=== PATIENT | female | born 1945 | race Caucasian/White ===

== ENCOUNTER 2020-11-13 15:02 | Emergency (ER) | payer OTHER ==
--- OUTSIDE RECORDS SUMMARY | 2020-11-13 15:05 | XMS REPORT | Continuity of Care Document ---
:1945 Author Organization [facility] t Address [address] [place] [address] Care Team Providers Name Role Phone Asked, Pcp Primary Care Physician Unavailable Payers Payer Name Policy Type Policy Number Effective Date Expiration Date S ource Problems Condition Condition Condition Status Onset Resolution Last Treating Co mments Source Name Details Category Date Date Treatment Clinician Date Endometria Endometria Disease Active 2015-08 Overview : [place] l cancer l cancer 1-16 [facility] 00:00: g of this st 00 note might be different from the original. Stage IA, Grade 1 Allergies, Adverse Reactions, Alerts Allergy Allergy Status Severity Reaction(s) Onset Inactive Treating Comm ents Source Name Type Date Date Clinician michelle ALVAREZ Active U 2016-08 [facility] 2-20 [facility] 00:00: e 00 [facility] Social History Social Habit Start Date Stop Date Quantity Comments Source Sex Assigned At [birth year] [facility] ethodist 00:00:00 00:00:00 Medications Ordered Filled Start Stop Current Ordering Indication Dosage Frequency Signature Comments Components Source Medication Medication Date Date Medication? Clinician (SIG) Name Name lisinopril 2015-08 Yes TK 1 T PO [place] (PRINIVIL,Z 1-10 QD Methodi ESTRIL) 5 00:00: st MG tablet 00 allopurinol 2015-08 Yes TK 1 T PO [place] (ZYLOPRIM) 0-25 QD Methodi 300 MG 00:00: st tablet 00 TOVIAZ 8 mg 2016-1 Yes TK 1 T PO [place] tablet 0-25 QD Method[facility] extended 00:00: st release 24 00 hr meloxicam 2016- Yes TK 1 T PO Zeenat ston (MOBIC) 7.5 0-25 BID PRN Metho di MG tablet 00:00: st 00 ergocalcife 2016-0 Yes TK 1 C PO [place] rol 9-15 1 TIME A [facility] (ERGOCALCIF 00:00: WEEK st JUSTIN) 00 50,000 unit capsule Procedures This patient has no known procedures. Plan of Care Planned Activity Planned Date Details Comments Source Future Scheduled 2020-03-25 INFLUENZA VACCINE [place] [facility] 00:00:00 [code = INFLUENZA VACCINE] Future Scheduled 2018-07-29 BREAST CANCER [facility]odist Test 00:00:00 SCREENING [code = BREAST CANCER SCREENING] Future Scheduled 2011 65+ PNEUMOCOCCAL [place] [facility] 00:00:00 VACCINE (1 of 1 - PPSV23) [code = 65+ PNEUMOCOCCAL VACCINE (1 of 1 - PPSV23)] Future Scheduled 1996 COLONOSCOPY SCREENING [facility] 00:00:00 [code = COLONOSCOPY SCREENING] Future Scheduled 1996 SHINGLES VACCINES (#1) [place] [facility] 00:00:00 [code = SHINGLES VACCINES (#1)] Future Scheduled 1962 COVID-19 VACCINE (1 of [place] [facility] 00:00:00 2) [code = COVID-19 VACCINE (1 of 2)] Results Test Description Test Time Test Comments Results Result Sour e Comments - XR CHEST 1 V 2020-08-21 08:43:00 [facility])Name: KONRAD MORFIN : 1945 Sex: F FAX: Beny Skinner [phone] [place]: St: ADM Name: KONRAD MORFIN [facility] : 1945 Age/S: 75/F [address] [facility] Unit #: [id number] Loc: V[facility] [place] [address] Phys: Beny Mcclendon MD Acct: [id number] Dis Date: Status: ADM IN PHONE #: [phone] Exam Date: 08/21/2020 0832 FAX #: [phone] Reason: F/U ON COVID 19 INFECTION EXAMS: CPT CODE: [id number] XR CHEST 1 V [id number] REASON FOR EXAM: F/U ON COVID 19 INFECTION Exam Order Date: 08/21/2020 6:00 AM Ordering M.D.: Beny Cohen MD PROCEDURE: - XR CHEST 1 V COMPARISON: 08/19/2020 FINDINGS: Lines/Tubes: Left chest wall AICD in appropriate position. The lungs are clear. There is no pleural effusion or pneumothorax. Pulmonary vascularity is within normal limits. Cardiomediastinal silhouette and mediastinal contours are unchanged when accounting for differences in technique. Musculoskeletal structures and visualized portions of the upper abdomen are also unchanged. IMPRESSION: No acute cardiopulmonary process. Location: [facility] at 0843 Reported and signed by: Niko Mcpherson M.D. CC: Beny Mcclendon Technologist: Marisol Bledsoe) Trnscrd Date/Time/By: 08/21/2020 (0843) : By: [email or web address] Orig Print D/T: S: 08/21/2020 (5636) PAGE 1 Signed Report TROPONIN-I 2020-08-19 22:34:00 Test Item Value Reference Range Interpretation Comme nts TROPONIN-I (test code = TROPI) <0.015 ng/mL 0-0.045 N COMMENTS TO CERTIFIED ATHLETIC TRAINER: COLLECT 3 HOURS AFTER PREVIOUS [id number] 19:06:00 Test Item Value Reference Range Interpretation Comments TROPONIN-I (test code = TROPI) <0.015 ng/mL 0-0.045 N COMMENTS TO CERTIFIED ATHLETIC TRAINER: COLLECT 3 HOURS AFTER PREVIOUS SAMPLEURINALYSIS [id number] 18:49:00 Test Item Value Reference Range Interpretation Comments UA COLOR (test code = COLU) Light-Yellow YELLOW UA APPEARANCE (test code = CLEAR CLEAR APPU) UA GLUCOSE DIPSTICK (test NEGATIVE mg/dL NEGATIVE code = DGLUU) UA BILIRUBIN DIPSTICK (test NEGATIVE mg/dL NEGATIVE code = BILU) UA KETONE DIPSTICK (test code NEGATIVE mg/dL NEGATIVE = KETU) UA SPECIFIC GRAVITY (test 1.010 1.001-1.035 code = SGU) UA BLOOD DIPSTICK (test code Negative mg/dL NEGATIVE = MIKI) UA PH DIPSTICK (test code = 5.5 5.0-8.0 FOX) UA PROTEIN DIPSTICK (test NEGATIVE mg/dL NEGATIVE code = PROU) UA UROBILINIOGEN DIPSTICK Normal mg/dL NEGATIVE (test code = URO) UA NITRITE DIPSTICK (test NEGATIVE NEGATIVE code = FABIO) UA LEUKOCYTE ESTERASE W NEGATIVE Sandeep/uL NEGATIVE REFLEX (test code = LEUUR) UA WBC (test code = WBCU) 0-5 per HPF 0-5 UA RBC (test code = RBCU) 0-2 #/HPF 0-5 UA EPITHELIAL CELLS (test FEW per HPF FEW code = EPIU) UA BACTERIA (test code = FEW #/HPF NONE A BACU) UA MUCUS (test code = MUCU) FEW #/LPF FEW Urine Source? Clean CatchURINALYSIS [id number] 18:45:00 Test Item Value Reference Range Interpretation Comments UA COLOR (test code = COLU) Light-Yellow YELLOW UA APPEARANCE (test code = CLEAR CLEAR APPU) UA GLUCOSE DIPSTICK (test NEGATIVE mg/dL NEGATIVE code = DGLUU) UA BILIRUBIN DIPSTICK (test NEGATIVE mg/dL NEGATIVE code = BILU) UA KETONE DIPSTICK (test code NEGATIVE mg/dL NEGATIVE = KETU) UA SPECIFIC GRAVITY (test 1.010 1.001-1.035 code = SGU) UA BLOOD DIPSTICK (test code Negative mg/dL NEGATIVE = MIKI) UA PH DIPSTICK (test code = 5.5 5.0-8.0 FOX) UA PROTEIN DIPSTICK (test NEGATIVE mg/dL NEGATIVE code = PROU) UA UROBILINIOGEN DIPSTICK Normal mg/dL NEGATIVE (test code = URO) UA NITRITE DIPSTICK (test NEGATIVE NEGATIVE code = FABIO) UA LEUKOCYTE ESTERASE W NEGATIVE Sandeep/uL NEGATIVE REFLEX (test code = LEUUR) UA WBC (test code = WBCU) per HPF 0-5 UA RBC (test code = RBCU) per HPF 0-5 UA EPITHELIAL CELLS (test per HPF Few code = EPIU) UA BACTERIA (test code = per HPF NONE BACU) Urine Source? Clean CatchCOVID 19 Asymptomatic IH [id number] 11:11:00 Test Item Value Reference Range Interpretation Comments COVID 19 Asymptomatic IH AG (test POSITIVE code = COVNONPUIAG) BASIC METABOLIC [id number] 10:56:00 Test Item Value Reference Range Interpretation Comments SODIUM (test code = 138 mmol/L 136-145 N NA) POTASSIUM (test code 3.9 mmol/L 3.5-5.1 N = K) CHLORIDE (test code = 104.0 mmol/L 98-107 N CL) CARBON DIOXIDE (test 24.0 mmol/L 21-32 N code = CO2) ANION GAP (test code 13.9 10-20 N = GAP) GLUCOSE (test code = 131 mg/dL 74-106 H GLU) BLOOD UREA NITROGEN 24 mg/dL 7-18 H (test code = BUN) GLOMERULAR FILTRATION 29 mL/min >=60 Estima kelvin GFR by RATE (test code = using Jose Cruz fied MDRD GFR) formula.Chronic kidney disease is defined as ei er kidney damageor GFR <60 mL/min/1.73 m2 for >3 months. CREATININE (test code 1.70 mg/dL 0.55-1.02 H Note change in = CREAT) reference range due to change in reagent. BUN/CREATININE RATIO 14.3 10-20 N (test code = BUN/CREA) CALCIUM (test code = 8.5 mg/dL 8.5-10.1 N CA) [id number] 10:56:00 Test Item Value Reference Range Interpretation Comments MAGNESIUM (test code = MAG) 1.7 mg/dL 1.8-2.4 L [id number] 10:56:00 Test Item Value Reference Range Interpretation Comments TROPONIN-I (test code = TROPI) 0.016 ng/mL 0-0.045 N BASIC METABOLIC [id number] 10:41:00 Test Item Value Reference Range Interpretation Comments SODIUM (test code = NA) 138 mmol/L 136-145 N POTASSIUM (test code = K) 3.9 mmol/L 3.5-5.1 N CHLORIDE (test code = CL) 104.0 mmol/L 98-107 N CARBON DIOXIDE (test code = CO2) mmol/L 21-32 ANION GAP (test code = GAP) 10-20 GLUCOSE (test code = GLU) mg/dL 74-106 BLOOD UREA NITROGEN (test code = mg/dL 7-18 BUN) GLOMERULAR FILTRATION RATE (test mL/min >=60 code = GFR) CREATININE (test code = CREAT) mg/dL 0.55-1.02 BUN/CREATININE RATIO (test code 10-20 = BUN/CREA) CALCIUM (test code = CA) mg/dL 8.5-10.1 [id number] 10:41:00 Test Item Value Reference Range Interpretation Comments MAGNESIUM (test code = MAG) mg/dL 1.8-2.4 [id number] 10:41:00 Test Item Value Reference Range Interpretation Comments TROPONIN-I (test code = TROPI) ng/mL 0-0.045 CBC W/O [id number] 10:33:00 Test Item Value Reference Range Interpretation Comments WHITE BLOOD CELL (test code = 6.2 K/mm3 4.5-12.5 N WBC) RED BLOOD CELL (test code = 4.40 mill/mm3 3.7-5.2 N RBC) HEMOGLOBIN (test code = HGB) 13.4 gram/dL 11.5-15.5 N HEMATOCRIT (test code = HCT) 41.1 % 36.0-46.0 N MEAN CELL VOLUME (test code = 93.4 fL 80-98 N MCV) MEAN CELL HGB (test code = MCH) 30.5 picogram 27.0-33.0 N MEAN CELL HGB CONCETRATION 32.6 gram/dL 33.0-36.0 L (test code = MCHC) RED CELL DISTRIBUTION WIDTH 13.5 % 11.6-16.2 N (test code = RDW) PLATELET COUNT (test code = 173 K/mm3 150-450 N PLT) MEAN PLATELET VOLUME (test code 9.9 fL 6.7-11.0 N = MPV) - XR CHEST 1 [id number] 10:32:00 [facility] 1945 Sex: F FAX: Nathaly Nino [phone] [place]: B St: REG-------- Name: KONRAD MORFIN AUDI [facility] : 1945 Age/S: 75/F [address] Unit #: [id number] Loc: [place] [address] Phys: Nathaly Carr MD Acct: [id number] Dis Date: Status: REG ER PHONE #: [phone] Exam Date: 08/19/2020 1026 FAX #: [phone] Reason: CHEST PAIN EXAMS: CPT CODE: [id number] XR CHEST 1 V [id number] REASON FOR EXAM: CHEST PAIN Exam Order Date: 08/19/2020 10:17 AM Ordering Lena: Nathaly rTujillo MD PROCEDURE: - XR CHEST 1 V COMPARISON: 08/14/2017 FINDINGS: Lines/Tubes: Left chest wall AICD in appropriate position. The lungs areclear. There is no pleural effusion or pneumothorax. Pulmonary vascularity is within normal limits. Cardiomediastinal silhouette and mediastinal contours are unchanged when accounting for differences in technique. Musculoskeletal structures and visualized portions of the upper abdomen are also unchanged. IMPRESSION: No acute cardiopulmonary process. Location: [facility] at 1032 Reported and signed by: Niko Mcpherson M.D. CC: Nathaly Trujillo MD Technologist: Nathaly SILVERMAN(R); Linnea Hummel(R) Trnscrd Date/Time/By: 08/19/2020 (8528) : By: [email or web address] Orig Print D/T: S:08/19/2020 (0063) PAGE 1 Signed Report
--- NOTE | 2020-11-13 18:48 | RAD REPORT ---
EXAM DESCRIPTION: CT - C Spine Wo Con - 11/13/2020 6:34 pm CLINICAL HISTORY: Left arm radiculopathy COMPARISON: None. TECHNIQUE: Computed axial tomography of the cervical spine were obtained with sagittal and coronal r econstruction images generated and reviewed. All CT scans are performed using dose optimization technique as appropriate and may include automated exposure control or mA/KV adjustment according to patient size. FINDINGS: A cervical fracture is not seen. No dislocation. Disc bulge and osteophytes C5-6 resulting [id number] narrowing of left moderate narrowing right neural foramina. The disc is thinned. Mild narrowing of the thecal sac. IMPRESSION: A cervical fracture is not seen. 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
[2020-11-13] MEDS ORDERED: METHOCARBAMOL 1,000 MG/10 ML VIAL IV ONE (19:54)
[2020-11-13] MEDS ORDERED: KETOROLAC 30 MG/ML INJ ONE (19:55)
[2020-11-13] MEDS ORDERED: NA CHLORIDE 0.9% 100 ML ONE (19:55)
--- NOTE | 2020-11-13 20:27 | ER ---
Nurse's Notes [facility] Name: Iva Flaherty Age: 75 yrs Sex: Female : 1945 Arrival Date: 11/13/2020 Time: 15:05 Bed 17 Private MD: Diagnosis: Cervical disc disorder with radiculopathy, mid-cervical region;Strain of muscle, fascia and tendon at neck level Presentation: 11/13 15:14 Chief complaint: Patient states: Pain to L arm, L neck, and L back for 6 days. Finished ll1 steroid pack and done x-rays 11/08, no relief. Sent in by Katja Howell for further eval. Coronavirus screen: Client denies travel out of the [place] in the last 14 days. At this time, the client does not indicate any symptoms associated with coronavirus-19. Ebola Screen: Patient denies travel to an Ebola-affected area in the 21 days before illness onset. Acute neurological deficit: none identified. Initial Sepsis Screen: Does the patient meet any 2 criteria? No. Patient's initial sepsis screen is negative. Does the patient have a suspected source of infection? Yes: Bone or joint infection. Risk Assessment: Do you want to hurt yourself or someone else? Patient reports no desire to harm self or others. Onset of symptoms was November 07, 2020. 15:14 Method Of Arrival: Wheelchair ll1 15:14 Acuity: NATHALIE 3 ll1 Historical: - Allergies: 15:18 Codeine; ll1 - PMHx: 15:18 Hypertension; GERD; ll1 - PSHx: 15:18 pacemaker; Appendectomy; Hysterectomy; uterine CA; ll1 - Immunization history:: Flu vaccine is not up to date. - Social history:: Smoking status: Patient denies any tobacco usage or history of. Screenin:10 Abuse screen: Denies threats or abuse. Denies injuries from another. Nutritional sf screening: No deficits noted. Tuberculosis screening: No symptoms or risk factors identified. Never had TB. Possible symptoms: None Risk factors: None. Fall Risk None identified. No fall in past 12 months (0 pts). No secondary diagnosis (0 pts). IV access (20 points). Ambulatory Aid- Crutches/Cane/Walker (15 pts). Gait- Normal/Bed Rest/Wheelchair (0 pts) Mental Status- Oriented to own ability (0 pts). Total Morrissey Fall Scale indicates Low Risk Score (25-44 pts). Fall prevention measures have been instituted. Side Rails Up X 2 Placed close to Nursing Station. Assessment: 19:15 General: Appears in no apparent distress. comfortable, Behavior is calm, cooperative, sf appropriate for age. Pain: Complains of pain in left arm. Neuro: No deficits noted. Level of Consciousness is awake, alert, obeys commands, Oriented to person, place, time, situation. Cardiovascular: No deficits noted. Patient's skin is warm and dry. Respiratory: No deficits noted. Airway is patent Respiratory effort is even, unlabored, Respiratory pattern is regular, symmetrical. GI: No signs and/or symptoms were reported involving the gastrointestinal system. : No signs and/or symptoms were reported regarding the genitourinary system. EENT: No signs and/or symptoms were reported regarding the EENT system. Derm: No signs and/or symptoms reported regarding the dermatologic system. Musculoskeletal: Capillary refill < 3 seconds. Vital Signs: 15:14 BP 177 / 72; Pulse 78; Resp 17; Temp 97.6; Pulse Ox 100% ; Weight 113.4 kg; Height 5 ll1 ft. 5 in. (165.10 cm); Pain 9/10; 19:43 BP 148 / 63; Pulse 72; Resp 16; Pulse Ox 99% ; sf 20:00 BP 135 / 58; Pulse 69; Resp 16; Pulse Ox 99% ; sf 20:54 BP 154 / 68; Pulse 74; Resp 16; Pulse Ox 100% ; sf 15:14 Body Mass Index 41.60 (113.40 kg, 165.10 cm) ll1 ED Course: 15:05 Patient arrived in ED. ds1 15:17 Triage completed. ll1 15:18 Arm band placed on. ll1 17:49 Lenin Dillard PA is PHCP. jr8 17:49 Christian eMjia MD is Attending Physician. jr8 18:34 CT C Spine In Process Unspecified. EDMS 19:10 Patient has correct armband on for positive identification. Placed in gown. Bed in low sf position. Call light in reach. Side rails up X2. Pulse ox on. NIBP on. Door closed. Noise minimized. Visitors limited. Lights dimmed. Verbal reassurance given. 19:12 Saluo Schwartz, RN is Primary Nurse. sf 19:15 Initial lab(s) drawn, by me, sent to lab. Missed attempt(s): 22 gauge in right sf antecubital area. Bleeding controlled, band aid applied, catheter tip intact. 19:30 Inserted saline lock: 22 gauge in right forearm, using aseptic technique. sf 21:23 No provider procedures requiring assistance completed. IV discontinued, intact, sf bleeding controlled, No redness/swelling at site. Pressure dressing applied. Administered Medications: 19:43 Drug: TORadol - Ketorolac 15 mg Route: IVP; Site: right forearm; sf 20:54 Follow up: Response: No adverse reaction sf 19:47 Drug: Robaxin 1 grams Route: IVPB; Infused Over: 1 hrs; Site: right forearm; sf 20:54 Follow up: IV Status: Completed infusion; IV Intake: 100ml sf 20:54 Follow up: Response: No adverse reaction sf 21:13 Drug: fentaNYL (PF) 75 mcg Route: IVP; Site: right forearm; sf 21:24 Follow up: Response: Medication administered at discharge. sf Intake: 20:54 IV: 100ml; Total: 100ml. sf Outcome: 20:27 Discharge ordered by . berny 21:23 Discharged to home via wheelchair. sf 21:23 Condition: stable 21:23 Discharge instructions given to patient, Instructed on discharge instructions, follow up and referral plans. medication usage, Demonstrated understanding of instructions, follow-up care, medications, Prescriptions given X 2. 21:35 Patient left the ED. sf Signatures: Dis[facility] Vanita Best dsLenin Moulton PA PA jrVictorino Agrawal RN RN ll1 Saulo Schwartz, RN RN sf
--- NOTE | 2020-11-13 20:27 | EDPHYS ---
Physician Documentation [facility] Name: Iva Flaherty Age: 75 yrs Sex: Female : 1945 Arrival Date: 11/13/2020 Time: 15:05 Bed 17 Private MD: ED Physician Christian Mejia HPI: 11/13 18:40 This 75 yrs old Female presents to ER via Wheelchair with complaints of Neck jr8 Pain, >24Hrs Old. 18:40 The symptoms are located on the right side of neck. Onset: The symptoms/episode jr8 began/occurred gradually. Associated signs and symptoms: The patient has no apparent associated signs or symptoms. The pain radiates to the left arm. Modifying factors: The symptoms are alleviated by remaining still. Severity of symptoms: At their worst the symptoms were moderate, in the emergency department the symptoms are unchanged. The patient has not experienced similar symptoms in the past. The patient has been recently seen by a physician:. Patient stated that this has been going on for over a week. Was given steroids and pain medicine. Still with only little relief. Denies trauma. Stated that she woke up out of bed one day with neck pain going to left shoulder region that will not go away . Historical: - Allergies: 15:18 Codeine; ll1 - PMHx: 15:18 Hypertension; GERD; ll1 - PSHx: 15:18 pacemaker; Appendectomy; Hysterectomy; uterine CA; ll1 - Immunization history:: Flu vaccine is not up to date. - Social history:: Smoking status: Patient denies any tobacco usage or history of. ROS: 18:40 Eyes: Negative for injury, pain, redness, and discharge, ENT: Negative for injury, jr8 pain, and discharge, Cardiovascular: Negative for chest pain, palpitations, and edema, Respiratory: Negative for shortness of breath, cough, wheezing, and pleuritic chest pain, Abdomen/GI: Negative for abdominal pain, nausea, vomiting, diarrhea, and constipation, Back: Negative for injury and pain, MS/Extremity: Negative for injury and deformity, Skin: Negative for injury, rash, and discoloration, Neuro: Negative for headache, weakness, numbness, tingling, and seizure. 18:40 Neck: Positive for pain with movement, pain at rest, tenderness. Exam: 18:40 Eyes: Pupils equal round and reactive to light, extra-ocular motions intact. Lids and jr8 lashes normal. Conjunctiva and sclera are non-icteric and not injected. Cornea within normal limits. Periorbital areas with no swelling, redness, or edema. ENT: Nares patent. No nasal discharge, no septal abnormalities noted. Tympanic membranes are normal and external auditory canals are clear. Oropharynx with no redness, swelling, or masses, exudates, or evidence of obstruction, uvula midline. Mucous membranes moist. Cardiovascular: Regular rate and rhythm with a normal S1 and S2. No gallops, murmurs, or rubs. Normal PMI, no JVD. No pulse deficits. Respiratory: Lungs have equal breath sounds bilaterally, clear to auscultation and percussion. No rales, rhonchi or wheezes noted. No increased work of breathing, no retractions or nasal flaring. Abdomen/GI: Soft, non-tender, with normal bowel sounds. No distension or tympany. No guarding or rebound. No evidence of tenderness throughout. Back: No spinal tenderness. No costovertebral tenderness. Full range of motion. Skin: Warm, dry with normal turgor. Normal color with no rashes, no lesions, and no evidence of cellulitis. MS/ Extremity: Pulses equal, no cyanosis. Neurovascular intact. Full, normal range of motion. Neuro: Awake and alert, GCS 15, oriented to person, place, time, and situation. Cranial nerves II-XII grossly intact. Motor strength 5/5 in all extremities. Sensory grossly intact. Cerebellar exam normal. Normal gait. 18:40 Neck: External neck: tenderness, that is moderate, of the point tenderness to right occiput , C-spine: appears grossly normal, Thyroid: appears normal, Trachea: is midline with no obvious abnormalities, ROM/movement: pain, that is mild, with rotation to the right, with extension, limited range of motion, is not appreciated, Meningeal signs: Kernig's sign is negative, Brudzinski's sign is negative, nuchal rigidity, is not appreciated, Lymph nodes: no appreciated lymphadenopathy. Vital Signs: 15:14 BP 177 / 72; Pulse 78; Resp 17; Temp 97.6; Pulse Ox 100% ; Weight 113.4 kg; Height 5 ll1 ft. 5 in. (165.10 cm); Pain 9/10; 19:43 BP 148 / 63; Pulse 72; Resp 16; Pulse Ox 99% ; sf 20:00 BP 135 / 58; Pulse 69; Resp 16; Pulse Ox 99% ; sf 20:54 BP 154 / 68; Pulse 74; Resp 16; Pulse Ox 100% ; sf 15:14 Body Mass Index 41.60 (113.40 kg, 165.10 cm) ll1 MDM: 17:49 Patient medically screened. [facility] 20:24 Data reviewed: vital signs, nurses notes, lab test result(s), radiologic studies, CT jr8 scan. Data interpreted: Pulse oximetry: on room air is 99 %. Interpretation: normal. Counseling: I had a detailed discussion with the patient and/or guardian regarding: the historical points, exam findings, and any diagnostic results supporting the discharge/admit diagnosis, lab results, radiology results, the need for outpatient follow up, a orthopedic surgeon, to return to the emergency department if symptoms worsen or persist or if there are any questions or concerns that arise at home. ED course: Patient feeling better at this time. Discussed results with patient and need to f/u with ortho spine. No neurologic deficit noted on exam. No need for emergent MRI at this time. Will need to f/u with ortho spine to have them determine if they want to do that. In the meantime will continue meds to help patients pain. If worse knows to come back. Patient good with plan . 11/13 18:19 Order name: Basic Metabolic Panel; Complete Time: 19:49 [facility] 11/13 18:18 Order name: CT C Spine; Complete Time: 18:51 [facility] 11/13 18:18 Order name: IV; Complete Time: 19:33 jr Administered Medications: 19:43 Drug: TORadol - Ketorolac 15 mg Route: IVP; Site: right forearm; sf 20:54 Follow up: Response: No adverse reaction sf 19:47 Drug: Robaxin 1 grams Route: IVPB; Infused Over: 1 hrs; Site: right forearm; sf 20:54 Follow up: IV Status: Completed infusion; IV Intake: 100ml sf 20:54 Follow up: Response: No adverse reaction sf 21:13 Drug: fentaNYL (PF) 75 mcg Route: IVP; Site: right forearm; sf 21:24 Follow up: Response: Medication administered at discharge. sf Disposition: 11/14 07:26 Co-signature as Attending Physician, Christian Mejia MD. rn Disposition: 11/13/20 20:27 Discharged to Home. Impression: Cervical disc disorder with radiculopathy, mid-cervical region, Strain of muscle, fascia and tendon at neck level. - Condition is Stable. - Discharge Instructions: Cervical Radiculopathy, Herniated Disk, Muscle Pain, Adult. - Prescriptions for meloxicam 15 mg Oral tablet - take 1 tablet by ORAL route once daily As needed; 20 tablet. Robaxin 500 mg Oral Tablet - take 2 tablet by ORAL route every 6 hours As needed; 40 tablet. - Medication Reconciliation Form, Thank You Letter, Antibiotic Education, Prescription Opioid Use form. - Follow up: Private Physician; When: 1 week; Reason: Recheck today's complaints, Continuance of care, Re-evaluation by your physician. - Problem is new. - Symptoms have improved. Signatures: Dispatcher [employer] EDMS Christian Mejia MD MD rn Roszak, Josh, PA PA jr8 Victorino John RN RN 1 Saulo Schwartz RN RN sf Corrections: (The following items were deleted from the chart) 11/13 21:35 20:27 11/13/2020 20:27 Discharged to Home. Impression: Cervical disc disorder with sf radiculopathy, mid-cervical region; Strain of muscle, fascia and tendon at neck level. Condition is Stable. Forms are Medication Reconciliation Form, Thank You Letter, Antibiotic Education, Prescription Opioid Use. Follow up: Private Physician; When: 1 week; Reason: Recheck today's complaints, Continuance of care, Re-evaluation by your physician. Problem is new. Symptoms have improved. jr8
[2020-11-13] MEDS ORDERED: FENTANYL CITR 100 MCG/2 ML ONE (21:26)
[2020-11-13 22:17] VITALS: TEMP 97.6
[2020-11-13 22:21] VITALS: BP 154/68; O2SAT 100
== END 2020-11-13 21:35 | disposition home or self-care (01) ==
LOC: ER 15:02
DX: M50.122 Cervical disc disorder at C5-C6 level with radiculopathy (principal); S16.1XXA Strain of muscle, fascia and tendon at neck level, initial encounter
CPT/HCPCS: 96365; 80048; 36415; 72125; 96375; 99284; J3010; J2800